=== PATIENT | female | born 2000 | race Caucasian/White ===

== ENCOUNTER 2024-09-29 08:30 | Emergency (ER) | payer OTHER, SELFPAY ==
--- NOTE | ~2024-09-29 | CT_ITS ---
EXAMINATION: CT abdomen pelvis w con DATE: 09/29/2024 12:36 INDICATION: Low abdominal pain. TECHNIQUE: Computed tomography (CT) of the abdomen and pelvis was performed with 100 mL Omnipaque 350 intravenous contrast. Automated exposure control and iterative reconstruction technique were employe d. The dose-length product was 353.42 mGy-cm. COMPARISON: None. FINDINGS: The visualized portions of the lung bases are clear without pneumonia or pleural effusion. The heart size is normal. No pericardial effusion. The liver, gallbladder, spleen, pancreas, adrenal glands, and kidneys are normal. There is wall thickening of the descending colon with surrounding fat stranding, consistent with colitis. The appendix is normal. There are no pathologically enlarged lym ph nodes. There is physiologic fluid in the pelvis. There is mild lumbar spondylosis. IMPRESSION: 1. Colitis involving descending colon. Reviewed, dictated and finalized at location B.
[2024-09-29 08:32] VITALS: BP 123/89; PULSE 95; RESP 16; TEMP 36.7; O2SAT 100
[2024-09-29 10:35] VITALS: BP 123/89; PULSE 95; RESP 14; TEMP 36.6; O2SAT 100
[2024-09-29 11:14] LABS: Basophils Percent Auto 0.2 % (0.2-1.2); Hemoglobin 14.6 g/dL (12.0-15.0); Immature Granulocyte Absolute 0.01 K/mm3 (0.00-0.031); Immature Granulocyte Percent A 0.1 % (0-0.5); Lymphocytes Absolute Auto 0.62 K/mm3 (0.9-3.2); Lymphocytes Percent Auto 5.9 % (18.3-44.2); Mean Corpuscular Hemoglobin 29.2 pg (26-34); Mean Platelet Volume 11.3 fl (7.4-10.4); Monocytes Absolute Auto 0.5 K/mm3 (0.1-0.6); Monocytes Percent Auto 4.4 % (2.6-8.5); Neutrophils Absolute Auto 9.5 K/mm3 (1.3-6.7); Neutrophils Percent Auto 89.4 % (45.5-73.1); Platelet Count Result 283 k/mm3 (150-375); Red Cell Distribution Width 12.1 % (11.5-14.5); White Blood Count 10.6 K/mm3 (4.5-10.0)
[2024-09-29 11:21] LABS: Add Urine Microscopic? YES; Appearance Urine Cloudy (Clear); Bacteria Urine 1+ /hpf; Bilirubin Urine Negative (Negative); Blood Urine Negative (Negative); Color Urine Dark Yellow (Yellow); Glucose Urine UA Negative (Negative); Ketones Urine 4+ mg/dL (Negative); Leukocyte Esterase Ur Trace LEU/UL (Negative); Nitrate Urine Negative (Negative); Protein Urine 1+ mg/dL (Negative); Specific Grav Ur 1.033 (1.001-1.035); Squamous Epithelial Cell Urine Few /hpf (Few); WBC Urine 0-5 /hpf (0-3); pH Urine 7.5 (5.0-9.0)
[2024-09-29 11:24] LABS: Alanine Aminotransferase 13 U/L (6-35); Albumin Level 4.6 g/dL (3.5-5.1); Alkaline Phosphatase 69 U/L (38-126); Anion Gap 11 mmol/L (4-12); Aspartate Amino Transferase 12 U/L (14-36); Bilirubin,Total 0.9 mg/dL (0.2-1.3); Blood Urea Nitrogen 10 mg/dL (7-17); Calcium 9.5 mg/dL (8.4-10.2); Carbon Dioxide 23 mmol/L (22-30); Chloride 104 mmol/L (98-107); Estimated CRCL calculation 125 ml/min; Estimated Glomerular Filt Rate > 60; Glucose 92 mg/dL (65-110); Lipase 97 U/L (23-300); Potassium 3.8 mmol/L (3.4-5.0); Sodium 138 mmol/L (137-145)
[2024-09-29 11:25] LABS: BEDSIDEPREGUCG Negative (Negative)
--- NOTE | 2024-09-29 11:52 | ED.ABDPAIN ---
HPI - Abdominal Pain General Chief Complaint: Abdominal Pain Stated Complaint: ABD PAIN X1D Time Seen by Provider: 09/29/24 10:57 Source: patient Mode of arrival: ambulatory Limitations: no limitations History of Present Illness HPI narrative: This is a 24-year-old female that presents to the emergency department for lower abdominal pain. Ongoing since last night. reports associated nausea and vomiting. Does report some diarrhea. Denies fevers, dysuria. Related Data Home Medications Medication Instructions Recorded Confirmed dextroamphetamine-amphetamine ER 10 mg PO BID 03/31/24 05/26/24 10 mg 24hr capsule,extend release (Adderall XR) ibuprofen 200 mg capsule 200 mg PO Q6H PRN 03/31/24 03/31/24 Allergies Allergy/AdvReac Type Severity Reaction Status Date / Time acetaminophen [From Tylenol] Allergy Severe Swelling Verified 09/29/24 08:31 of Lip/Tongue/Throat Review of Systems Review of Systems: CONSTITUTIONAL: Denies fever GASTROINTESTINAL: Reports abdominal pain, nausea, vomiting, and diarrhea. GENITOURINARY: Denies dysuria or hematuria. All systems reviewed & are unremarkable except as noted in HPI and below PMFSH Past Medical History Medical History ADHD GERD (gastroesophageal reflux disease) Migraine Motion sickness Surgical History Surgical History H/O gynecological procedure Nexplanon removal and reinsertion 06/07/2020 Nexplanon insertion 06/05/2017 Family History Family History Father Diabetes mellitus Hypertension Mother Depression Grandparent Carcinoma of colon Diabetes mellitus Hypertension Heart disease Thyroid disorder Other Breast cancer Social History Social History (Updated 05/26/24 @ 14:11 by Edilma Cruz MA) Smoking status: Never smoker Second hand tobacco smoke exposure: No Alcohol intake: current Substance use: never Substance use type: does not use Do You Feel Safe in your Home?: Yes Lack of Transportation: No Lack of Food: Never True Current Housing: I Have Housing Concerned About Future Housing: No Difficulty Paying Gas/Electric Bills: No Difficulty Paying for Meds: No Currently Unemployed: No Education: Master's Degree or Higher Difficulty w/ Childcare or Family Care: No Living arrangements: with roommate(s) Occupation/Education: occupation Gender identity (if verbalized by the patient): Female Sexual Orientation (if Verbalized by the Patient): Bisexual Exam Narrative: GENERAL: Well-appearing, well-nourished, and in no acute distress. HEAD: Normocephalic, atraumatic. EYES: EOMI. CHEST: Clear to auscultation. No respiratory distress. No wheezes rales or rhonchi HEART: Regular rate and rhythm. No murmur heard. Normal peripheral pulses. ABDOMEN: Soft, nondistended, normal active bowel sounds. Mild tenderness to palpation throughout the lower abdomen, without guarding EXTREMITIES: Normal range of motion. No edema. SKIN: Warm, dry, no rash. NEURO: No focal deficits. Alert and oriented x3. PSYCH: Normal mood and affect Course Course Emergency Course: patient updated on workup and agrees with plan of care Vital Signs Vital signs: Vital Signs Temperature 98.0 F 09/29/24 08:32 Pulse Rate 95 09/29/24 08:32 Respiratory Rate 16 09/29/24 08:32 Blood Pressure 123/89 09/29/24 08:32 Pulse Oximetry 100 09/29/24 08:32 Oxygen Delivery Room Air 09/29/24 08:32 Temperature 98 F 09/29/24 10:35 Pulse Rate 95 09/29/24 10:35 Respiratory Rate 14 09/29/24 10:35 Blood Pressure 123/89 09/29/24 10:35 Pulse Oximetry 100 09/29/24 10:35 Oxygen Delivery Room Air 09/29/24 08:32 MDM - Abdominal Pain MDM Narrative Medical decision making narrative: Patient presents to the emergency department for abdominal pain ongoing since yesterday. She is afebrile and nontoxic appearing. Her vitals are stable. CBC with mild leukocytosis to 10.6. Metabolic panel without concerning findings. Urine without evidence of infection. test is negative. CT abdomen and pelvis shows findings of colitis. Patient hydrated with IV fluids and given antiemetic with improvement. Will be discharged on oral antibiotics. She is to follow up with primary provider. She was given warnings to return to the ER Differential Diagnosis Differential diagnosis: Likely abdominal pain, constipation, diverticulitis and other ( colitis) Lab Data Attestation: I reviewed the patient's lab results. 09/29/24 11:06 09/29/24 11:06 Labs: Lab Results 09/29/24 09/29/24 Range/Units 11:06 11:22 WBC 10.6 H (4.5-10.0) K/mm3 RBC 5.00 (4.2-5.4) M/mm3 Hgb 14.6 (12.0-15.0) g/dL Hct 43.0 (37.0-47.0) % MCV 86.0 (80-100) fl MCH 29.2 (26-34) pg MCHC 34.0 (32-36) g/dl RDW 12.1 (11.5-14.5) % Plt Count 283 (150-375) k/mm3 MPV 11.3 H (7.4-10.4) fl Immature Gran % (Auto) 0.1 (0-0.5) % Neut % (Auto) 89.4 H (45.5-73.1) % Lymph % (Auto) 5.9 L (18.3-44.2) % [place] % (Auto) 4.4 (2.6-8.5) % Eos % (Auto) 0.0 (0-4.4) % Baso % (Auto) 0.2 (0.2-1.2) % Lymph # (Auto) 0.62 L (0.9-3.2) K/mm3 [place] # (Auto) 0.5 (0.1-0.6) K/mm3 Eos # (Auto) 0.0 (0-0.3) K/mm3 Baso # (Auto) 0.0 (0.0-0.1) K/mm3 Abs Immat Gran (auto) 0.01 (0.00-0.031) K/mm3 Absolute Neuts (auto) 9.5 H (1.3-6.7) K/mm3 Absolute Nucleated RBC 0.000 (0.0-0.012) K/mm3 Nucleated RBC % 0.0 (0.0-0.2) % Sodium 138 (137-145) mmol/L Potassium 3.8 (3.4-5.0) mmol/L Chloride 104 (98-107) mmol/L Carbon Dioxide 23 (22-30) mmol/L Anion Gap 11 (4-12) mmol/L BUN 10 (7-17) mg/dL Creatinine 0.60 L (0.7-1.0) mg/dL Estim Creat Clear Calc 125 ml/min Estimated GFR > 60 (59 - ) Glucose 92 (65-110) mg/dL Calcium 9.5 (8.4-10.2) mg/dL Total Bilirubin 0.9 (0.2-1.3) mg/dL AST 12 L (14-36) U/L ALT 13 (6-35) U/L Alkaline Phosphatase 69 (38-126) U/L Total Protein 8.0 (6.3-8.2) g/dL Albumin 4.6 (3.5-5.1) g/dL Lipase 97 (23-300) U/L Urine Color Dark yellow (Yellow) Urine Appearance Cloudy H (Clear) Urine pH 7.5 (5.0-9.0) Ur Specific [place] 1.033 (1.001-1.035) Urine Protein 1+ H (Negative) mg/dL Urine Glucose (UA) Negative (Negative) mg/dL Urine Ketones 4+ H (Negative) mg/dL Ur Blood (Man) Negative (Negative) Urine Nitrate Negative (Negative) Urine Bilirubin Negative (Negative) Urine Urobilinogen 1.0 (<2.0) mg/dL Leukocyte Esterase Rfl Trace H (Negative) BELLA/UL Urine RBC 3-5 H (0-2) /hpf Urine WBC 0-5 (0-3) /hpf Ur Squamous Epith Cells Few (Few) /hpf Urine Bacteria 1+ H /hpf Urine Casts 3-5 POC Urine HCG, Qual Negative (Negative) Imaging Data Radiologist's impression: ITS Impressions Abdomen/Pelvis CT 09/29/24 12:37 IMPRESSION: 1. Colitis involving descending colon. Critical Care Time Critical Care Time Critical Care Time: No Discharge Plan Discharge Clinical Impression: Colitis Patient Disposition: Home, Self-Care Condition: Stable Instructions: Antibiotic Form, Colitis (ED) Additional Instructions: Return to the ER if you experience fever, abdominal pain with nausea and vomiting, you are unable to keep down liquids or solids, blood in the stool, pain or burning with urination, blood in the urine or any other symptoms that are concerning to you Small, frequent meals. [place] diet. Remain well hydrated. Take oral antibiotic as prescribed Follow up with your primary care doctor Prescriptions: New ciprofloxacin HCl 500 mg tablet 500 mg PO Q12H 5 Days Qty: 10 0RF metronidazole 500 mg tablet 500 mg PO Q8H 5 Days Qty: 15 0RF No Action dextroamphetamine-amphetamine [Adderall XR] 10 mg capsule,extended release 24hr 10 mg PO BID ibuprofen 200 mg capsule 200 mg PO Q6H PRN scopolamine base 1 mg over 3 days patch 3 day 1 patch transdermal Q3D PRN (Reason: motion sickness) Qty: 4 2RF ondansetron HCl 4 mg tablet 4 mg PO Q8H PRN (Reason: nausea and vomiting) Qty: 20 0RF Wegovy 1 mg/0.5 mL pen injector 1 mg subcut WEEKLY Qty: 2 1RF Follow-up/Referrals: Cely Tang 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
[2024-09-29] MEDS: SODIUM CHLORIDE 0.9% IV 1,000 ML 999 ML IV CONT (12:03)
[2024-09-29] MEDS: ONDANSETRON INJ 4 MG/2 ML VIAL IV PUSH (12:03)
== END 2024-09-29 13:15 | disposition home or self-care (01) ==
PROVIDERS: Emergency Medicine; Emergency Provider Physician Assistant; PCP Nurse Practitioner
DX: K52.9 Noninfective gastroenteritis and colitis, unspecified (principal); F90.9 Attention-deficit hyperactivity disorder, unspecified type; K21.9 Gastro-esophageal reflux disease without esophagitis
CPT/HCPCS: 36415; 74177; 80053; 81001; 81025; 83690; 85025; 96361; 96374; 99284; J2405; J7030; Q9967

== ENCOUNTER 2024-11-16 15:27 | Outpatient (CLI) | payer OTHER, SELFPAY ==
[2024-11-16 16:13] LABS: Beta HCG Quantitative < 2.39 mIU/ML
== END 2024-11-16 15:28 | disposition home or self-care (01) ==
LOC: ANHLAB 15:29
PROVIDERS: PCP Internal Medicine; Visit Provider Obstetrics & Gynecology
DX: N92.6 Irregular menstruation, unspecified (principal)
CPT/HCPCS: 36415; 84702

== ENCOUNTER 2025-02-10 00:40 | Day surgery (SDC) | payer OTHER, SELFPAY ==
[2025-01-31 13:56] VITALS: BMI 23.6
--- OUTSIDE RECORDS SUMMARY | 2025-02-10 00:43 | XMS_ITS | Referral Summary ---
Author Organization [facility] Address [address] [place] [address] Care Team Providers Care Prescription Clerk Lenses Name Role Phone Unavailable Primary Care Provider Unavailabl e Source Comments [facility],non-owned Affiliates and Associated Physician Practices is amultiple site organization consisting of ambulatory clinics and hospital sitesin [place], [place], [place] and [place]. This disclosure is being madepursuant to the Care Everywhere program and may not contain all information available regarding this patient. Last updated 18.[employer] [employer] Social History Tobacco Use Types Packs/Day Years Used Date Smoking Tobacco: Never Assessed Sex and Gender Information Value Date Recorded Sex Assigned at Not on file Gender Identity Not on file Sexual Orientation Not on file Plan of Treatment Not on file
--- OUTSIDE RECORDS SUMMARY | 2025-02-10 00:43 | XMS_ITS | Patient Health Summary ---
Author Organization [facility] Address [address] [place] [address] Care Team Providers Care Block Mechanic Name Role Phone Unavailable Primary Care Provider Unavailabl e Note from [facility],non-owned Affiliates and Associated Physician Practices is amultiple site organization consisting of ambulatory clinics and hospital sitesin [place], [place], [place] and [place]. This disclosure is being madepursuant to the Care Everywhere program and may not contain all informatio navailable regarding this patient. Last updated 18.[facility] Social History Tobacco Use Types Packs/Day Years Used Date Smoking Tobacco: Never Assessed Sex and Gender Information Value Date Recorded Sex Assigned at Not on file Gender Identity Not on file Sexual Orientation Not on file Procedures * QUANTIFERON-TB GOLD PLUS 4-TUBE(Performed 06/28/2022) Performed for Well adult exam, Screening for tuberculosis Results * QUANTIFERON-TB GOLD PLUS 4-TUBE (06/28/2022 9:43 AM CDT) QuantiFERON NIL 0.02 IU/mL 11:01 AM CDT [facility] ([facility]) Comment: Performed By: [facility] [address] [place] [id number] Resort Host: Bud Biggs MD, PhD QuantiFERON TB Gold Plus Negative Negative 07/03/2022 11:01 AM CDT [facility] ([facility] ([facility]) Comment: Interpretive Data: Quantiferon TB Gold Plus Interferon gamma release is measured for specimens from each of the four collection tubes. A qualitative result (Negative, Positive, or Indeterminate) is based on interpretation of the four values, NIL, MITOGEN minus NIL (MITOGEN-NIL), TB1 minus NIL (TB1-NIL), and TB2 minus NIL (TB2-NIL). The NIL value represents nonspecific reactivity produced by the patient specimen. The MITOGEN-NIL value serves as the positive control for the patient specimen, demonstrating successful lymphocyte activity. The TB1-NIL tube specifically detects CD4+ lymphocyte reactivity, specifically stimulated by the TB1 antigens. The TB2-NIL tube detects both CD4+ and CD8+ lymphocyte reactivity, stimulated by TB2 antigens. An overall Negative result does not completely rule out TB infection. A false-positive result in the absence of other clinical evidence of TB infection is not uncommon. Refer to: Updated Guidelines for Using Interferon Gamma Release Assays to Detect Mycobacterium tuberculosis Infection --- [place], 2010 (http://www.cdc.gov/mmwr/preview/mmwrhtml/vi5428j9.htm), for more information concerning test performance in low-prevalence populations and use in occupational screening. QuantiFERON Plus TB1 Minus NIL 0.00 0.00 - 0.34 IU/mL 07/03/2022 11:01 AM CDT [facility] ([facility]) QuantiFERON Plus TB2 Minus NIL 0.01 0.00 - 0.34 IU/mL 07/03/2022 11:01 AM CDT [facility] ([facility]) QuantiFERON Mitogen Minus NIL >10.00 IU/mL 07/03/2022 11:01 AM CDT [facility] [employer] ([facility]) Blood BLOOD SPECIMEN / Unknown Venipuncture / Unknown 06/28/2022 9:43 AM CDT 06/28/2022 9:43 AM CDT Jose Moser DATABASE PROGRAMMER ANALYST-SUPERVISOR [employer] [facility] - CHEMISTRY O RDERABLES [facility] ([facility]) ([facility]) [address]
--- OUTSIDE RECORDS SUMMARY | 2025-02-10 00:43 | XMS_ITS | Clinical Summary ---
Author Organization [facility] Address [address] [place] [address] Care Team Providers Care Box Press Operator Name Role Phone Unavailable Primary Care Provider Unavailabl e Source Comments [facility],non-owned Affiliates and Associated Physician Practices is amultiple site organization consisting of ambulatory clinics and hospital sitesin [place], [place], [place] and [place]. This disclosure is being madepursuant to the Care Everywhere program and may not contain all information available regarding this patient. Last updated 18.[facility] Social History Tobacco Use Types Packs/Day Years Used Date Smoking Tobacco: Never Assessed Sex and Gender Information Value Date Recorded Sex Assigned at Not on file Gender Identity Not on file Sexual Orientation Not on file Plan of Treatment Health Maintenance Due Date Last Done Comments PAP SMEAR 2001 HIV SCREENING 02/05/2016 HPV VACCINE (1 - 3-dose series) 02/05/2016 CHLAMYDIA/GONORRHEA SCREENING 2017 MENINGOCOCCAL (Group B) VACC INE SHARED DECISION-MAKING (1 of 2 - Standard) 2017 HEPATITIS C SCREENING 01/31/2019 DTAP/TDAP/TD VACCINES (1 - Tdap) 02/05/2020 HEPATITIS B VACCINE (1 of 3 - 19+ 3-dose series) 02/05/2020 COVID-19 VACCINE (1 - 2023-2 5 season) 2024 INFLUENZA VACCINE (#1) 2024 DEPRESSION SCREENING 11/30/2024 ZOSTER VACCINE (1 of 2) 2051 HIB VACCINE Aged Out No longer eligi ble based on patient's age to complete this topic MENINGOCOCCAL GROUPS A/C/Y/W VACCINE Aged Out No longer eligible b ased on patient's age to complete this topic PNEUMOCOCCAL VACCINE Aged Out No long er eligible based on patient's age to complete this topic
[2025-02-10 06:26] VITALS: BP 113/79; PULSE 92; RESP 18; TEMP 36.1; O2SAT 100
[2025-02-10 06:29] LABS: BEDSIDEPREGUCG Negative (Negative)
[2025-02-10] MEDS: LACTATED RINGERS 1,000 ML 150 ML IV CONT (06:32)
--- NOTE | 2025-02-10 06:58 | P.PNAN_ITS ---
Anes - Initial Pre Proc Eval Procedure: Operation Date: 02/10/25 07:30 Proposed Procedures p Colonoscopy - Dimitri Long MD Date/Time: 02/10/25 06:58 Surgeon: Dimitri Long MD Pre Op Diagnosis: colitis Patient Data Age: 25 Gender: F Height: 1.73 m Weight: 72 kg Last Vital Signs Temp 96.9 F L 02/10/25 06:26 Pulse 92 02/10/25 06:26 Resp 18 02/10/25 06:26 BP 113/79 02/10/25 06:26 Pulse Ox 100 02/10/25 06:26 O2 Del Method Room Air 02/10/25 06:26 Allergies Allergy/AdvReac Type Severity Reaction Status Date / Time acetaminophen (From Tylenol) Allergy Severe Swelling Verified 02/10/25 06:22 of Lip/Tongue/Throat Home Medications ?Medication ?Instructions ?Recorded ?Confirmed ?Type dextroamphetamine-amphetamine ER 10 mg PO BID 03/31/24 02/10/25 History 10 mg 24hr capsule,extend release (Adderall XR) semaglutide (weight loss) 0.25 0.25 mg (0.5 mL) subcut WEEKLY #2 10/04/24 01/31/25 Rx mg/0.5 mL subcutaneous pen mL injector (Wegovy) levonorgestrel (Mirena) 1 device intrauterine ONCE 11/17/24 02/10/25 History fluoxetine 10 mg capsule (Prozac) 10 mg PO DAILY 11/29/24 02/10/25 History ondansetron 4 mg disintegrating 4 mg PO Q8H PRN nausea and 12/13/24 02/10/25 Rx tablet vomiting #20 tabs ondansetron HCl 4 mg tablet 4 mg PO Q6H PRN nausea and 02/02/25 Rx vomiting #4 tabs Laboratory Tests 02/10/25 06:26 POC Urine HCG, Qual Negative (Negative) Patient hx anesthesia problems: none Family hx anesthesia problems: none Results Review: All pre-operative results and documents have been reviewed as part of the pre- operative evaluation. [facility] Past Medical History Medical History Motion sickness Migraine GERD (gastroesophageal reflux disease) ADHD Surgical History Surgical History H/O gynecological procedure Nexplanon removal and reinsertion 06/07/2020 Nexplanon insertion 06/05/2017 Family History Family History Father Diabetes mellitus Hypertension Mother Depression Diverticulosis Kidney stone Grandparent Carcinoma of colon Diabetes mellitus Hypertension Heart disease Thyroid disorder Diverticulitis Other Breast cancer Social History Social History Smoking status: Never smoker Second hand tobacco smoke exposure: No Alcohol intake: never Substance use: never Substance use type: does not use Do You Feel Safe in your Home?: Yes Lack of Transportation: No Lack of Food: Never True Current Housing: I Have Housing Concerned About Future Housing: No Difficulty Paying Gas/Electric Bills: No Difficulty Paying for Meds: No Currently Unemployed: No Education: High School Diploma/GED Difficulty w/ Childcare or Family Care: No Living arrangements: with roommate(s) Occupation/Education: occupation Gender identity (if verbalized by the patient): Female Sexual Orientation (if Verbalized by the Patient): Bisexual Spiritual care concerns: No Anes - Eval Final PreProcedure Day of Procedure 02/10/25 06:58 Patient weight: overweight Lungs: normal air movement Airway: Mallampati scale class II Neurological: alert and oriented Last oral intake: >/= 8 hours ASA classification: II Emergent: no Anesthetic plan: proceed Anesthesia type and monitoring: general GIVS and standard monitoring Results Review: All pre-operative results and documents have been reviewed as part of the pre- operative evaluation. ADHD meds, pt reports remote hx of vaping. Pt w hx of change in bowel habits. Off GLP1 for several months. Informed Consent: The patient's anesthetic plan and its attendant risks and benefits were discussed with the patient/family/POA. Questions were solicited and answers provided to the satisfaction of the patient/family/POA.
--- NOTE | 2025-02-10 07:29 | PM.HPGS ---
History of Present Illness History of Present Illness Consent: Risks, benefits, and alternatives have been discussed and questions answered. Patient agrees to proceed with procedure. Chief complaint: colitis Narrative: Tiana Jones is a 25 year old female with colitis , here for first colonoscopy Review of Systems Review of Systems: All systems reviewed & are unremarkable except as noted in HPI and below PMFSH Past Medical History Medical History (Updated 02/10/25 @ 07:31 by Dimitri Long MD) History of colitis Motion sickness Migraine GERD (gastroesophageal reflux disease) ADHD Surgical History Surgical History H/O gynecological procedure Nexplanon removal and reinsertion 06/07/2020 Nexplanon insertion 06/05/2017 Family History Family History Father Diabetes mellitus Hypertension Mother Depression Diverticulosis Kidney stone Grandparent Carcinoma of colon Diabetes mellitus Hypertension Heart disease Thyroid disorder Diverticulitis Other Breast cancer Social History Social History Smoking status: Never smoker Second hand tobacco smoke exposure: No Alcohol intake: never Substance use: never Substance use type: does not use Do You Feel Safe in your Home?: Yes Lack of Transportation: No Lack of Food: Never True Current Housing: I Have Housing Concerned About Future Housing: No Difficulty Paying Gas/Electric Bills: No Difficulty Paying for Meds: No Currently Unemployed: No Education: High School Diploma/GED Difficulty w/ Childcare or Family Care: No Living arrangements: with roommate(s) Occupation/Education: occupation Gender identity (if verbalized by the patient): Female Sexual Orientation (if Verbalized by the Patient): Bisexual Spiritual care concerns: No Meds Home Medications and Allergies Home Medications ?Medication ?Instructions ?Recorded ?Confirmed ?Type dextroamphetamine-amphetamine ER 10 mg PO BID 03/31/24 02/10/25 History 10 mg 24hr capsule,extend release (Adderall XR) semaglutide (weight loss) 0.25 0.25 mg (0.5 mL) subcut WEEKLY #2 10/04/24 01/31/25 Rx mg/0.5 mL subcutaneous pen mL injector (Wegovy) levonorgestrel (Mirena) 1 device intrauterine ONCE 11/17/24 02/10/25 History fluoxetine 10 mg capsule (Prozac) 10 mg PO DAILY 11/29/24 02/10/25 History ondansetron 4 mg disintegrating 4 mg PO Q8H PRN nausea and 12/13/24 02/10/25 Rx tablet vomiting #20 tabs ondansetron HCl 4 mg tablet 4 mg PO Q6H PRN nausea and 02/02/25 Rx vomiting #4 tabs Allergies Allergy/AdvReac Type Severity Reaction Status Date / Time acetaminophen (From Tylenol) Allergy Severe Swelling Verified 02/10/25 06:22 of Lip/Tongue/Throat Vital Signs Vital Signs - 24 hr 02/10/25 06:26 Temperature 96.9 F L Pulse Rate 92 Respiratory Rate 18 Blood Pressure 113/79 Pulse Oximetry 100 Oxygen Delivery Room Air Exam Const: General: comfortable and no acute distress HENMT: Face/Nose/Sinus: Normal nares present Eyes: General: appearance normal, both eyes and all related structures Neck: Neck: no JVD Resp: Auscultation: clear to auscultation bilaterally Cardio: Rate: regular rate Rhythm: regular rhythm GI: Inspection: non-distended GI Palp: Yes Soft to palpation Skin: General skin exam: normal color Neuro: General: gait normal Speech: normal speech Extrem: General: normal to inspection Psych: Mental Status: mental status grossly normal Assessment and Plan Assessment and plan (1) History of colitis: Code(s): Z87.19 - Personal history of other diseases of the digestive system Status: Acute Assessment and Plan: colitis
[2025-02-10 07:48] VITALS: BP 106/71; PULSE 76; RESP 23; O2SAT 100
[2025-02-10 07:58] VITALS: BP 114/75; PULSE 80; RESP 19; O2SAT 100
[2025-02-10 08:08] VITALS: BP 114/78; PULSE 78; RESP 18; O2SAT 100
== END 2025-02-10 08:20 | disposition home or self-care (01) ==
PROVIDERS: Anesthesiology; PCP Internal Medicine; Referring Provider Nurse Practitioner Family; Visit Provider Internal Medicine Gastroenterology
PROC: 0DJD8ZZ Inspection of Lower Intestinal Tract, Via Natural or Artificial Opening Endoscopic (ICD-10-PCS; CPT 45378; principal; 2025-02-10 07:30)
DX: K52.9 Noninfective gastroenteritis and colitis, unspecified (principal); K21.9 Gastro-esophageal reflux disease without esophagitis; F90.9 Attention-deficit hyperactivity disorder, unspecified type; Z79.85 Long-term (current) use of injectable non-insulin antidiabetic drugs; Z98.890 Other specified postprocedural states; Z87.19 Personal history of other diseases of the digestive system; Z80.0 Family history of malignant neoplasm of digestive organs; Z80.3 Family history of malignant neoplasm of breast; Z82.49 Family history of ischemic heart disease and other diseases of the circulatory system
CPT/HCPCS: 45378; J2003; J2704; J7120

== ENCOUNTER 2025-08-03 08:13 | Emergency (ER) | payer OTHER, SELFPAY ==
--- NOTE | 2025-08-03 08:33 | ED_ITS ---
HPI - URI/Sore Throat General Chief Complaint: Upper Respiratory Infection Stated Complaint: Sore Throat/Ear Pain History of Present Illness HPI Narrative: 25-year-old female presented for complaint of sore throat and bilateral ear pain. Onset 4 days. Endorses slight hoarse voice and occasional nonproductive cough. Denies shortness of breath, wheezing nausea, vomiting, fevers or chills. Not taking anything for symptoms. Related Data Home Medications ?Medication ?Instructions ?Recorded ?Confirmed ?Last Taken ?Type levonorgestrel (Mirena) 1 device intrauterine ONCE 1 01/18/24 08/03/25 02/09/25 History Allergies Allergy/AdvReac Type Severity Reaction Status Date / Time acetaminophen (From Tylenol) Allergy Severe Swelling Verified 08/03/25 08:39 of Lip/Tongue/Throat adhesive AdvReac Mild Rash Verified 08/03/25 08:39 Review of Systems Review of Systems: CONSTITUTIONAL: Denies body aches, fever, chills, or sweats. EYES: Denies visual changes, redness, or discharge. ENT: reports sore throat otalgia. CARDIOVASCULAR: Denies chest pain, palpitations, or edema. RESPIRATORY: Denies dyspnea. GASTROINTESTINAL: Denies abdominal pain, nausea, vomiting, or diarrhea. SKIN: Denies rash NEUROLOGIC: Denies headache PMFSH Past Medical History Medical History Encounter for insertion of Mirena IUD 11/17/2024 Normal colonoscopy History of colitis Motion sickness Migraine GERD (gastroesophageal reflux disease) ADHD Surgical History Surgical History H/O gynecological procedure Nexplanon removal and reinsertion 06/07/2020 Nexplanon insertion 06/05/2017 Family History Family History Father Diabetes mellitus Hypertension Mother Depression Diverticulosis Kidney stone Grandparent Carcinoma of colon Diabetes mellitus Hypertension Heart disease Thyroid disorder Diverticulitis Other Breast cancer Social History Social History Smoking status: Never smoker Second hand tobacco smoke exposure: No Alcohol intake: never Substance use: never Substance use type: does not use Do You Feel Safe in your Home?: Yes Lack of Transportation: No Lack of Food: Never True Current Housing: I Have Housing Concerned About Future Housing: No Difficulty Paying Gas/Electric Bills: No Difficulty Paying for Meds: No Currently Unemployed: No Education: High School Diploma/GED Difficulty w/ Childcare or Family Care: No Living arrangements: with roommate(s) Occupation/Education: occupation Gender identity (if verbalized by the patient): Female Sexual Orientation (if Verbalized by the Patient): Bisexual Spiritual care concerns: No Exam Narrative: GENERAL: Well-appearing, no acute distress. EYES: conjunctivae clear ENT: Mucous membranes moist. TM pearly dawkins with normal light reflex bilaterally; no tragal tenderness. Oropharynx not erythematous without lesions. Tonsils not enlarged and without exudate. No drooling, no hoarseness, no trismus, uvula midline. No tripod positioning, hot potato voice, or soft palate swelling. NECK: Supple. No lymphadenopathy CHEST: Clear to auscultation, breath sounds equal. No respiratory distress, speaks in full sentences. HEART: Regular rate and rhythm. No murmur heard. SKIN: Warm, dry, no rash. NEURO: Alert and oriented x3. Course Course Emergency Course: Patient is aware of diagnosis, understands and agrees to treatment plan. Anticipatory guidance given. Patient agrees to follow-up as directed and is aware of reasons to seek care at the emergency department. Portions of this record may have been created with voice recognition software Level of Care: Express Care Visit Vital Signs Vital signs: Vital Signs Temperature 98.3 F 08/03/25 08:49 Pulse Rate 92 08/03/25 08:49 Respiratory Rate 20 08/03/25 08:49 Blood Pressure 125/92 H 08/03/25 08:49 Pulse Oximetry 100 08/03/25 08:49 Oxygen Delivery Room Air 08/03/25 08:49 Temperature 98.3 F 08/03/25 08:49 Pulse Rate 92 08/03/25 08:49 Respiratory Rate 20 08/03/25 08:49 Blood Pressure 125/92 H 08/03/25 08:49 Pulse Oximetry 100 08/03/25 08:49 Oxygen Delivery Room Air 08/03/25 08:49 MDM - URI/Sore Throat MDM Narrative Medical decision making narrative: negative strep result reviewed with pt. patient is requesting prednisone to help with symptoms. Advise supportive treatments. Patient is appropriate for outpatient treatment and follow-up. Differential Diagnosis Differential diagnosis: Likely upper respiratory infection, viral infection and pharyngitis Lab Data Labs: Lab Results 08/03/25 Range/Units 08:40 POC Grp A Strep Screen Negative (Negative) Discharge Plan Discharge Clinical Impression: Upper respiratory infection Patient Disposition: Home Condition: Stable Instructions: Antibiotic Form, Upper Respiratory Infection (ED) Additional Instructions: Rapid strep swab was negative today You will be notified in a few days if the culture comes back positive for strep, and appropriate antibiotics will be called in at that time. if symptoms are due to a viral illness, it is not treated with antibiotics. Viral symptoms can be present for up to 10-14 days. Recommendations: Flonase spray and Zyrtec for sinus congestion Cough syrup may cause drowsiness; avoid driving or take it at night time. Tylenol every 8 hours as needed for pain/fever Soft foods, cool liquids, warm tea. Gargle with warm saltwater twice a day. Chloraseptic spray and throat lozenges. Rest and stay hydrated. --Follow up with your PCP --Go to the ER immediately if you cannot swallow your saliva, trouble breathing/wheezing, throat swelling, pain is persistent and severe Patient Language: [place]ian Prescriptions: New prednisone 20 mg tablet 40 mg PO DAILY 3 Days Qty: 6 0RF No Action Mirena 21 mcg/24hr (up to 8 yrs) 52 mg intrauterine device 1 device intrauterine ONCE Rx Instructions: as a single dose Wegovy 1 mg/0.5 mL pen injector 1 mg subcut Q7D Qty: 2 0RF Follow-up/Referrals: Cely Tang, NURSE EMERGENCY [Primary Care Provider, Internal Medicine] Time of Disposition: 08:56
[2025-08-03 08:49] VITALS: BP 125/92; PULSE 92; RESP 20; TEMP 36.8; O2SAT 100
[2025-08-03 08:49] LABS: EDSTREPNEGPOS1 Negative (Negative)
== END 2025-08-03 09:00 | disposition home or self-care (01) ==
PROVIDERS: Emergency Provider Nurse Practitioner Family; PCP Nurse Practitioner
DX: J06.9 Acute upper respiratory infection, unspecified (principal); K21.9 Gastro-esophageal reflux disease without esophagitis
CPT/HCPCS: 87081; 87880; 99213; G0463